=== PATIENT | male | born 1980 | race African-American/Black ===

== ENCOUNTER 2017-07-17 09:38 | Emergency (ER) | payer BC ==
[~2017-07-17] VITALS: Ht 172.7 cm; Wt 68.0 kg
[~2017-07-17 09:38] MED LIST: ADVAIR DISKUS 21 DSK IH; BACTRIM DS 8001 TAB PO; CIPRO 500MG TA500 MG PO; HYDROCORTISONE2.52 PR; MEDROL 4MG. DOSE4 MG PO; PROAIR HFA0.09 MG/AC IH; PROCTOFOAM TP; [UNRECOGNIZED DRUG - OTHER] TP
--- OUTSIDE RECORDS SUMMARY | 2017-07-17 09:43 | External Medical Summary Rpt ---
Author Author TEO Bergman, [employer] Organization [employer] Address Unknown Phone Unavailable
--- OUTSIDE RECORDS SUMMARY | 2017-07-17 09:43 | External Medical Summary Rpt | CCD ---
Author Author , TEO BRUCE Address Unknown Phone [email or web address] Immunization Name Date Rout CVX Reac Dose Comm Prov Is Faci e tion ent ider Refu lity Give sed n Infl 09-1 Intr 0.5 Hist PD20 No PD20 uenz 4-20 amus mL oric 255 255 a 17 cula al Quad r Info rmat W/Pr ion es - Sour ce Unsp ecif ied
--- OUTSIDE RECORDS SUMMARY | 2017-07-17 09:43 | External Medical Summary Rpt | CCD ---
Author Author , TEO BRUCE Address Unknown Phone [email or web address] Purpose Continuity of Care Document - through 2016
--- OUTSIDE RECORDS SUMMARY | 2017-07-17 09:43 | External Medical Summary Rpt | CCD ---
Author Author , TEO BRUCE Address Unknown Phone [email or web address] Purpose Continuity of Care Document - through 2016
--- OUTSIDE RECORDS SUMMARY | 2017-07-17 09:43 | External Medical Summary Rpt | CCD ---
Author Author , [employer] Organization [employer] Address Unknown Phone Care Team Providers Care Auditor Appraiser Name Role Phone Tal Gordon [facility] DAVION APARICIO, Tal Gordon III, MD Purpose Continuity of Care Document - 11-10-2012 through 2016 Problems Code Diagnosis DOS Provider Status 455.3 455.3 EXT 11-10-2012 [facility] Allergies, Adverse Reactions, Alerts Type Allergy to substance Adverse Reaction to Substance Substance Reaction Severity NO KNOWN ALLERGIES Unknown Unknown Medications Na ND Rx Da Fi Fi Am Da Di Ph RX Ph St me C No te ll ll ou ys ag ar # ys at rm s nt no ma ic us Or Da si cy ia de te s n re d LI 00 03 0 No DO 16 -2 CA 80 3- Lo IN 35 20 ng E- 75 13 er SC 6 [place] Ac OC ti AI ve NE CR EA M Vital Signs 11-10-2012 03:22 Name Value Interpretat Reference Comment ion Range BP 86 mm[Hg] Diastolic BP Systolic 130 mm[Hg] Heart 68 /min Rate/Pulse O2% 97 % Respiratory 20 /min Rate 11-10-2012 03:03 Name Value Interpretat Reference Comment ion Range Body 98.7 [degF] Temperature 11-10-2012 01:41 Name Value Interpretat Reference Comment ion Range Body 98 [degF] Temperature BP 76 mm[Hg] Diastolic BP Systolic 128 mm[Hg] Heart 66 /min Rate/Pulse O2% 97 % Respiratory 16 /min Rate Encounters Encounter Start End Date Code Location Performer Type Date Emergency HIRAM Gordon (ER) 3 00:30 3 03:[address] [facility] Tal Hollingsworth
--- OUTSIDE RECORDS SUMMARY | 2017-07-17 09:43 | External Medical Summary Rpt | CCD ---
Author Author , TEO BRUCE Address Unknown Phone [email or web address] Immunization Name Date Rout CVX Reac Dose Comm Prov Is Faci e tion ent ider Refu lity Give sed n Infl 09-1 Intr 0.5 Hist PD20 No PD20 uenz 4-20 amus mL oric 255 255 a 17 cula al Quad r Info rmat W/Pr ion es - Sour ce Unsp ecif ied
--- OUTSIDE RECORDS SUMMARY | 2017-07-17 09:43 | External Medical Summary Rpt | CCD ---
Author Author , [employer] Organization [employer] Address Unknown Phone Care Team Providers Care Bulk Clerk Name Role Phone Tal Gordon [facility] DAVION APARICIO, Tal Gordon III, MD Purpose Continuity of Care Document - 11-10-2012 through 2016 Problems Code Diagnosis DOS Provider Status 455.3 455.3 EXT 11-10-2012 [facility] Allergies, Adverse Reactions, Alerts Type Allergy [...] 35 20 ng E- 75 13 er PA 6 [place] Ac OC ti AI ve [...] HIRAM Gordon (ER) 3 00:30 3 03:23 [facility] Tal Hollingsworth
--- NOTE | 2017-07-17 10:17 | RADIOLOGY REPORT PS360 ---
ANKLE-RT-3 VIEWS HISTORY: Ankle sprain/pain FEELS LIKE SPRAINED ANKLE ORDERING PHYSICIAN: SANTY SÁNCHEZ APRN PATIENT AGE: 36 years COMPARISON: None FINDINGS: No fracture or dislocation. No lytic or blastic change. There is normal mineralization.. The joint spaces are well-preserved. No significant degenerative/arthritic changes. No erosive changes evident. There is a faint rounded opacity along the medial aspect of the lateral malleolus. This does not have a typical appearance for an avulsion fracture or may represent an artifact. There is soft tissues one along the lateral malleolus. IMPRESSION: Soft tissue swelling otherwise negative
[2017-07-17] MEDS ORDERED: IBUPROFEN800 MG PO (10:37)
--- NOTE | 2017-07-17 10:38 | Urgent Treatment Center Report ---
History of Present Issue Date/Time Seen by Provider 07/17/17 1028 Visit Reason Pt arrived:Walked Presenting Problem:PT STATES HE ROLLED HIS ANKLE DURING BASKETBALL PRACTICE LAST NIGHT Location if Accident:Public Bulding Onset of symptoms date/time:07/16/17 or onset unknown for: Have you (or family members/close friends) recently traveled outside the [place]? N If Yes, where/when: Have you had exposure to infectious disease within the past month? TB? Other? 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 and he was showing them a move last night in practice when he twisted and rolled his right ankle State that he has been having some and pain and swelling ever since so he came in today to get it checked out Home Medications Active Scripts SULFAMETHOXAZOLE/TRIMETHOPRIM (Sulfamethoxazole-Tmp Ds Tablet) 1 TAB PO BID #42 TAB Prov: 07/26/15 PRAMOXINE HCL (Proctofoam) 1 DOSE TP 5XDAY 7 Days Prov: 11/10/12 Hydrocortisone 30 GM [place] BID 7 Days Prov: 11/10/12 Reported Medications Pramoxine HCl (Preparation H) 26 GM TP PRN Albuterol Sulfate (Proair Hfa) 2 PUFFS IH Q6HP #1 INH FLUTICASONE/SALMETEROL (Advair 250-50 Diskus) 1 PUFF IH BID History Medical History General Angina: No GA: No Hypertension? No Hyperlipidemia? No CHF? No COPD? No Asthma? Yes CVA? No Seizures? No Diabetes? No GB Disease: No MRSA? No TB? No Cancer? No Immunization HX DT/Tetanus > 10 YRS Surgical Hx Previous Surgery?Y RIGHT KNEE SURGERY Social History Smoking Hx Smoker: Never Smoker Tobacco: No Alcohol Alcohol: No Review of Systems All Other Systems Reviewed and Negative Physical Exam Vital Signs Vital Signs Date Time Temp Pulse Resp B/P Pulse O2 O2 Flow FiO2 Ox Delivery Rate 07/17 1008 98.6 68 20 125/75 99 General Appearance normal appearance, WD/WN, no apparent distress Respiratory Status Yes: trachea midline, chest symmetrical, non tender chest. No: respiratory distress. Cardiovascular normal exam, regular rate/rhythm, no peripheral edema Extremities swelling, Pain and mild swelling with mild discoloration to right ankle after twisting it yesterday in basketball practice, good pulses, good temp , good cap refill able to move toes Neurologic alert, normal exam, oriented x 3 Medical Decision Making LABS/Meds/Orders Pt receiving controlled substance in ED? No XRAY/CT/US XRAY/CT/US XRAY ankle XR interpretation by reviewed by me Xray Results no fracture seen Departure Departure Time of Disposition 1035 Disposition DC Home or Self Care(routine) Clinical Impression Primary Impression: Ankle sprain Qualifiers: Encounter type: initial encounter Involved ligament of ankle: unspecified ligament Laterality: right Qualified Code: S93.401A - Sprain of unspecified ligament of right ankle, initial encounter Condition STABLE Referrals Mario San MD (Family): 3 Days-Call Office if no improvement in symptoms Patient Instructions Ankle Sprain, How To Perform RICE (Rest, Ice, Compress, Elevate), How to Use Crutches, Sprain Additional Instructions *weight bearing as tolerated *RICE, Rest the extremity, Ice 15-20 minutes 3-4 times daily, Compress- wear the boni wrap as discussed as much as possible to help reduce swelling and pain, Elevate the extremity when at rest *Boni wrap is for support and help control swelling, use it except in the shower. Be sure that is not to tight but not to loose either *Elevate when resting *Ibuprofen 600-800mg every 6-8 hours as needed for pain an inflammation. If need something more can take Tylenol in between doses of Ibuprofen to help Immediately follow up for new or worsening of symptoms, or no noticeable improvement over the next 3-5 days Discharge Counseling Counseled pt/family regarding diagnosis, test results, home care, follow up needs Prescriptions Current Visit Scripts Ibuprofen (Ibuprofen 800MG) 800 MG PO QIDP PRN pain #30 TAB at 1037
--- NOTE | 2017-07-17 10:38 | Urgent Treatment Center Report ---
History of Present Issue Date/Time Seen by Provider 07/17/17 1028 Visit Reason Pt arrived:Walked Presenting Problem:PT STATES HE ROLLED HIS ANKLE DURING BASKETBALL PRACTICE LAST NIGHT Location if Accident:Public Bulding Onset of symptoms date/time:07/16/17 or onset unknown for: Have you (or family members/close friends) recently traveled outside the [place]? N If Yes, where/when: Have you had exposure to infectious disease within the past month? TB? Other? 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 was showing them a move last night in practice when he twisted and rolled his right ankle State that he has been having some and pain and swelling ever since so he came in today to get it checked out Home Medications Active Scripts SULFAMETHOXAZOLE/TRIMETHOPRIM (Sulfamethoxazole-Tmp Ds Tablet) 1 TAB PO BID #42 TAB Prov: 07/26/15 PRAMOXINE HCL (Proctofoam) 1 DOSE TP 5XDAY 7 Days Prov: 11/10/12 Hydrocortisone 30 GM [place] BID 7 Days Prov: 11/10/12 Reported Medications Pramoxine HCl (Preparation H) 26 GM TP PRN Albuterol Sulfate (Proair Hfa) 2 PUFFS IH Q6HP #1 INH FLUTICASONE/SALMETEROL (Advair 250-50 Diskus) 1 PUFF IH BID History Medical History General Angina: No [place]: No Hypertension? No Hyperlipidemia? No CHF? No COPD? No Asthma? Yes CVA? No Seizures? No Diabetes? No GB Disease: No MRSA? No TB? No Cancer? No Immunization HX DT/Tetanus > 10 YRS Surgical Hx Previous Surgery?Y RIGHT KNEE SURGERY Social History Smoking Hx Smoker: Never Smoker Tobacco: No Alcohol Alcohol: No Review of Systems All Other Systems Reviewed and Negative Physical Exam Vital Signs Vital Signs Date Time Temp Pulse Resp B/P Pulse O2 O2 Flow FiO2 Ox Delivery Rate 07/17 1008 98.6 68 20 125/75 99 General Appearance normal appearance, WD/WN, no apparent distress Respiratory Status Yes: trachea midline, chest symmetrical, non tender chest. No: respiratory distress. Cardiovascular normal exam, regular rate/rhythm, no peripheral edema Extremities swelling, Pain and mild swelling with mild discoloration to right ankle after twisting it yesterday in basketball practice, good pulses, good temp , good cap refill able to move toes Neurologic alert, normal exam, oriented x 3 Medical Decision Making LABS/Meds/Orders Pt receiving controlled substance in ED? No XRAY/CT/US XRAY/CT/US XRAY ankle XR interpretation by reviewed by me Xray Results no fracture seen Departure Departure Time of Disposition 1035 Disposition DC Home or Self Care(routine) Clinical Impression Primary Impression: Ankle sprain Qualifiers: Encounter type: initial encounter Involved ligament of ankle: unspecified ligament Laterality: right Qualified Code: S93.401A - Sprain of unspecified ligament of right ankle, initial encounter Condition STABLE Referrals Mario San MD (Family): 3 Days-Call Office if no improvement in symptoms Patient Instructions Ankle Sprain, How To Perform RICE (Rest, Ice, Compress, Elevate), How to Use Crutches, Sprain Additional Instructions *weight bearing as tolerated *RICE, Rest the extremity, Ice 15-20 minutes 3-4 times daily, Compress- wear the boni wrap as discussed as much as possible to help reduce swelling and pain, Elevate the extremity when at rest *Boni wrap is for support and help control swelling, use it except in the shower. Be sure that is not to tight but not to loose either *Elevate when resting *Ibuprofen 600-800mg every 6-8 hours as needed for pain an inflammation. If need something more can take Tylenol in between doses of Ibuprofen to help Immediately follow up for new or worsening of symptoms, or no noticeable improvement over the next 3-5 days Discharge Counseling Counseled pt/family regarding diagnosis, test results, home care, follow up needs Prescriptions Current Visit Scripts Ibuprofen (Ibuprofen 800MG) 800 MG PO QIDP PRN pain #30 TAB at 1037
[2017-07-17 10:52] VITALS: BP 128/75
== END 2017-07-17 10:53 | disposition home or self-care (01) ==
LOC: UTC 09:38
DX: S93.401A Sprain of unspecified ligament of right ankle, initial encounter (principal); X50.1XXA Overexertion from prolonged static or awkward postures, initial encounter; Y93.67 Activity, basketball; Y92.39 Other specified sports and athletic area as the place of occurrence of the external cause